=== PATIENT | female | born 1930 | race Caucasian/White ===

== ENCOUNTER 2017-12-02 17:39 | Inpatient (IN) | payer MEDICARE ==
[~2017-12-02] VITALS: Ht 160 cm; Wt 78.5 kg
--- NOTE | ~2017-12-02 | PR ---
[place], [place] PROGRESS NOTE NAME: NEERU FONSECA UNIT #: [id number] ROOM: 311 DOCTOR: JOSE LOU MD BIRTHDATE: [birth year] DOS: 12/12/2017 CHIEF COMPLAINT: "Good morning, how are you." SUMMARY OF THE VISIT: The patient was interviewed as she sat in the quiet room, eating her breakfast. Physical therapy was there working with her and they disengaged and allowed me to interview her. The patient was bright and pleasant as I approached and she smiled readily. Her only complaint was that she was cold and she requested another blanket. She reported she slept good and is feeling okay again other than being cold. She was pleasant and cooperative upon approach. Notes indicate, however, she continues to have episodic yelling out. She does seem to be tolerating the current medication regimen well and I do not see any sedation, somnolence, extrapyramidal symptoms or tardive dyskinesia. MENTAL STATUS: She is alert and oriented to self, possibly place, not to time. Mood does seem to be trending towards euthymia and affect is more appropriate. There is no walker or hypomania. There are no gross psychotic symptoms. Short-term memory continues to be problematic. Otherwise, she is intact. PLAN: I will increase her Seroquel from 75 to 100 mg at bedtime. Continue to engage in individual and llamas milieu activity, returning to the least restrictive environment when psychiatrically stable. JOSE LOU MD CM:PNTRANS [id number] JOSE LOU MD 12/12/17 1356 interface
--- NOTE | ~2017-12-02 | PR ---
[place], [place] PROGRESS NOTE NAME: NEERU FONSECA UNIT #: [id number] ROOM: 311 DOCTOR: FANY MCGARRY DO BIRTHDATE: [birth year] DOS: 12/13/2017 CHIEF COMPLAINT: "Good morning." SUMMARY OF VISIT: An 87-year-old female was interviewed while sitting in a chair in the back of the dining room waiting for breakfast. She reports she slept okay. Informed the patient working on her discharge paperwork and the patient states she would like that. Per nursing, the patient continues to have episodes of yelling out during the day and sometimes in the night. The patient's p.o. intake also remained decreased in which she did not eat the sac last night and only ate 50% of her lunch as well. The patient has not required her insulin due to the decrease in p.o. intake. MENTAL STATUS EXAMINATION: She is alert and oriented to self, but not place or time. Mood is more euthymic and affect is more appropriate. The episodic yelling appears to occur when the patient is left alone and suspect to be attention seeking. No walker or hypomania. No agitation. Short-term memory remains poor. PLAN: 1. Continue current psychiatric medication regimen. 2. We will continue to encourage the patient to engage in individual and word milieu activity, returning to the least restrictive environment when psychiatrically stable. ADDENDUM Dr. Lou 12/21 03:30 p.m.: Above note reviewed. Agree with observations, recommendations, and overall treatment plan. Fany Mcgarry DO [place], [place] PROGRESS NOTE NAME: NEERU FONSECA UNIT #: [id number] ROOM: 311 DOCTOR: FANY MCGARRY DO BIRTHDATE: [birth year] JOSE LOU MD CM:PNTRANS 0927 T: FANY MCGARRY DO 12/21/17 1549 [email or web address] [email or web address]
--- NOTE | ~2017-12-02 | WRIGHTHP ---
[place], [place] PATIENT HISTORY AND PHYSICAL EXAM NAME: NEERU FONSECA UNIT #: [id number] ROOM: 317 DOCTOR: JOSE LOU MD BIRTHDATE: [birth year] DOS: 12/04/2017 CHIEF COMPLAINT: "Yeah, I am a little cold, I can use another blanket, thank you." HISTORY OF PRESENT ILLNESS: This is an 87-year-old white female known to me from a previous psychiatric admission to [facility] as well as her stay at [facility]. Most recently, the patient had a spike in her anxiety and her yelling out necessitating a psychiatric admission to [place], [place]. During the period of time, she had a rather lengthy hospital stay that culminated with the last 7 days of her being relatively symptom free, ultimately going back to [facility]; however, within 24 hours of readmission to [facility], the patient began acting out. She was yelling out once again, verbally abusive towards staff, threatening towards staff and other residents. She even had gone as far as to leaving her room in her wheelchair and going into other residents' rooms and making threats of bodily harm to them. She also made threats to visitors that were there. This is in stewart contrast to her admission to [facility] as well as her last week while at the psychiatric hospital. She is admitted now to rule out physical issues, to attempt to restabilize on medication if necessary, to engage in individual and llamas milieu activity and then to determine the least restrictive environment to which she could be discharged to. PAST MEDICAL HISTORY: Remarkable for Alzheimer's dementia, coronary artery disease, congestive heart failure, COPD, diabetes, hypertension, hyperlipidemia, hypothyroidism, obesity, obstructive sleep apnea, uterine cancer, vitamin D deficiency. SOCIAL HISTORY: She is a former cigarette smoker. She does not use drugs or any alcohol. ALLERGIES: She lists allergies to PENICILLIN, ARICEPT, GLIMEPIRIDE, IBUPROFEN, and NAMENDA. STRENGTHS: Good verbal skills, supportive family. WEAKNESSES: Poor coping skills. MENTAL STATUS: Alert and oriented to person, place, not time. Mood seems to be fairly euthymic. Affect appropriate. Some anxiety was present, but redirectable. No walker, hypomania or psychosis is noted. She does process slowly and at times there is sparsity of thought and responses are slow. Short-term memory continues to be problematic. DIAGNOSES: Major depression, recurrent; brief psychotic disorder. PLAN: I have maintained her current psychotropics. We will engage in individual and llamas milieu activity, explore possible discharge options, discharging then when stable. [place], [place] PATIENT HISTORY AND PHYSICAL EXAM NAME: NEERU FONSECA UNIT #: [id number] ROOM: [facility] DOCTOR: JOSE LOU MD BIRTHDATE: [birth year] JOSE LOU MD CM:HISPHYS:PATIENT HISTORY AND PHYSICAL EXAMINATION [id number] JOSE LOU MD 12/04/17 1018 interface
--- NOTE | ~2017-12-02 | PR ---
[place], [place] PROGRESS NOTE NAME: NEERU FONSECA UNIT #: [id number] ROOM: 311 DOCTOR: FANY MCGARRY DO BIRTHDATE: [birth year] DOS: 12/06/2017 PSYCHIATRIC PROGRESS NOTE CHIEF COMPLAINT: "I am alright." SUMMARY OF THE VISIT: The patient was interviewed in the dining home while waiting for lunch. Per nursing staff, the patient has not slept for the last 2 nights and last night, she was screaming and exhibited manic-like behavior. When prompting patient about how she has been sleeping, she said she does not sleep at night, but she does not feel any tiredness or the need to sleep. When asked if the patient had depression or anxiety, the patient actually became very sensitive regarding that subject and very testy and she states she denies any depression or anxiety. The patient only states that she is only ever in pain whenever she moves too much. Nursing staff also stated that patient refused blood work this morning. MENTAL STATUS EXAMINATION: The patient is alert and oriented to person and place, but not to time. The patient does appear to have a mood that is somewhat depressed and anxious. There is no walker, hypomania or psychosis. Short term memory is very poor. PLAN: Seroquel 12.5 mg at bedtime. We will continue to engage patient in individual and llamas milieu activity, return to least restrictive environment when psychiatrically stable. Discharge will depend on medical and psychiatric status at that time. ADDENDUM Dr. Lou 12/21 03:30 p.m.: Above note reviewed. Agree with observations, recommendations, and overall treatment plan. Fany Mcgarry DO [place], [place] PROGRESS NOTE NAME: NEERU FONSECA UNIT #: [id number] ROOM: 311 DOCTOR: FANY MCGARRY DO BIRTHDATE: [birth year] JOSE LOU MD CM:PNTRANS 20 1017 TM FANY MCGARRY DO 12/23/17 1018 JESSICA [email or web address]
--- NOTE | ~2017-12-02 | PR ---
[place], [place] PROGRESS NOTE NAME: NEERU FONSECA UNIT #: [id number] ROOM: 317 DOCTOR: JOSE LOU MD BIRTHDATE: [birth year] DOS: 12/05/2017 CHIEF COMPLAINT: "It is all my fault, I did that." HISTORY OF PRESENT ILLNESS: The patient was interviewed as she sat next to a female peer who was very withdrawn and grossly delusional. As I was attempting to interview the other resident, the patient intervened repeatedly stating that it is all her fault that she was that way. When I did remove the patient and talked to her separately, she continued to complain of feeling very anxious and repeatedly asked me to help her. When I attempted to ask what she needed, she was not able to vocalize this. Later as I was finishing rounds, she was in the group therapy room repeatedly yelling out "help me, help me, I want to go to bed." When staff did try to intervene, she was only quiet for a short period of time and then would escalate rapidly thereafter. She is tolerating the current medication regimen well and I do not see any suggestion of sedation, somnolence, extrapyramidal symptoms or tardive dyskinesia. MENTAL STATUS: She remains alert and oriented to person, place and that she knows she is in the hospital. I am unclear if she realizes that she is in [place]. She is certainly not oriented to time. Mood does still seem to be somewhat depressed with anxious overtones. There is no walker, hypomania or gross psychosis. Memory for short term events is exceptionally poor. PLAN: I will change her Cymbalta from 60 mg at bedtime to 20 mg in the morning and 40 mg at night, being careful not to overdo medication and utilize a current dose just in a different fashion to see if benefit can incur. At this point, I may need to add an antipsychotic medication. Her anxiety level is almost to the point of delusional in its characteristics as she does not redirect and does not find any other ways to cope. We will continue to try nonpharmacologic interventions as well to see if these are at all beneficial. Ultimately, we will look to discharge her to the least restrictive environment when psychiatrically stable. JOSE LOU MD CM:YANET [id number] JOSE LOU MD 12/05/17 2339 interface
--- NOTE | ~2017-12-02 | DS ---
[place], [place] DISCHARGE SUMMARY NAME: NEERU FONSECA UNIT #: [id number] ROOM: 311 DOCTOR: JOSE LOU MD BIRTHDATE: [birth year] DOS: 12/16/2017 CHIEF COMPLAINT: "Yeah, I am a little cold, I could use another blanket, thank you." HISTORY OF PRESENT ILLNESS: This is an 87-year-old white female known to me from her previous psychiatric admission to [facility] as well as her stay at [facility]. Most recently, the patient had an increase in her anxiety and yelling out behavior, necessitating a psychiatric admission to [facility]. During that period of time, she had a rather lengthy hospital stay. They had culminated with the last 7 days of her being symptom free, ultimately going back to [facility]; however, within 24 hours of readmission to [facility], the patient began acting out. She was yelling out once again, was verbally abusive toward staff and threatening staff and other residents. She had even gone as far as to leaving her room with her wheelchair and going into other residents' rooms and making threats of bodily harm to them. She also made threats to visitors that were there. As mentioned previously, this is in stewart contrast to her behavior during the latter part of her stay at [facility]. She was admitted now to [facility] to rule out any organic factors, to stabilize on medication and determine the least restrictive environment to which she could be discharged to. PAST MEDICAL HISTORY: Remarkable for Alzheimer's dementia, coronary artery disease, congestive heart failure, COPD, diabetes, hypertension, hyperlipidemia, hypothyroidism, obesity, obstructive sleep apnea, uterine cancer and vitamin D deficiency. SOCIAL HISTORY: She is a former cigarette smoker. She does not use drugs or drink any alcohol. She lists allergies to PENICILLIN, ARICEPT, GLIMEPIRIDE, IBUPROFEN and NAMENDA. STRENGTHS: Good verbal skills and supportive family. WEAKNESSES: Poor coping skills. SUMMARY OF HOSPITAL COURSE: The patient was admitted to the hospital, where she was maintained on Exelon patch 9.5 mg a day. Her Cymbalta, which was being given at a dose of 60 mg at bedtime was split to 20 mg in the morning and 40 mg at nighttime in order to improve anxiety control and pain control. She tolerated this switch well. She was eventually started on Seroquel at bedtime 25 mg, then 50, then 100 mg in order to augment the effectiveness of the Cymbalta. This did aid sleep and reduce her daytime anxiety and mood lability. She was also maintained on BuSpar 5 mg 4 times daily as this had worked previously at [facility] to control her anxiety. Toward the latter part of her stay, Atarax 10 mg t.i.d. was added also to decrease her anxiety. It seemed as though the anxiety triggered her yelling out. There was also a behavioral component that we consistently noted on the unit that if she was not getting the attention that she wanted or the response that she wanted, she would definitely [place], [place] DISCHARGE SUMMARY NAME: NEERU FONSECA UNIT #: [id number] ROOM: 311 DOCTOR: JOSE LOU MD BIRTHDATE: [birth year] escalate and yell out repeatedly. Once her needs were met, she would stop the erratic behavior. The patient had improved sufficiently with this combination and was tolerating the medication combination well, so that she was discharged. At this point, she was discharged to [facility]. MENTAL STATUS AT DISCHARGE: Alert, oriented with time gaps. Mood does seem to be euthymic. Affect appropriate. No walker, hypomania or psychosis. Short term memory is problematic. FINAL DIAGNOSES: Major depression, recurrent with psychotic features. Anxiety disorder, not otherwise specified, and Alzheimer's dementia. DISPOSITION: The patient is being discharged to [facility]. Her prescriptions were printed and will be sent with her. She was medically and psychiatrically stable and her biopsychosocial needs will be adequately met by the facility to which she is being admitted to. JOSE LOU MD CM:DISCHARG [id number] JOSE LOU MD 12/16/17 1849 interface
--- NOTE | ~2017-12-02 | PR ---
[place], [place] PROGRESS NOTE NAME: NEERU FONSECA UNIT #: [id number] ROOM: 310 DOCTOR: KIARA MELENDEZ MD BIRTHDATE: [birth year] DOS: 12/10/2017 PSYCHIATRIC PROGRESS NOTE SUBJECTIVE: The patient seen and spoke with the staff. Per staff, the patient sundown. She has been getting p.r.n. Vistaril at 4:00-5:00 p.m., which was effective. The patient was pleasant, cooperative. She was in the day area. She was kept on screaming that "I need help." "I don't know what's wrong." When I asked her that what was bothering her, she did not answer any of my question. Reportedly, she is taking her medication and did not have any side effect from the medication also. MENTAL STATUS EXAMINATION: The patient was screaming that "I need help." She was in the [place] chair. She was alert, but not oriented to day, date, month and year. Described her mood as "okay." Affect was broad range. Thought process was disorganized. She denied auditory or visual hallucination. No delusion or paranoia noted. She denied suicidal ideation, intent or plan. She also denied homicidal ideation, intent or plan. PLAN: 1. Continue current medications and care. 2. Continue redirection. 3. Supportive care. KIARA MELENDEZ MD CM:PNTRANS [phone] KIARA MELENDEZ MD 12/11/17 1417 interface
--- NOTE | ~2017-12-02 | PR ---
[place], [place] PROGRESS NOTE NAME: NEERU FONSECA UNIT #: [id number] ROOM: 311 DOCTOR: FANY MCGARRY DO BIRTHDATE: [birth year] DOS: 12/14/2017 CHIEF COMPLAINT: "Hey, hey need someone on phone." SUMMARY OF VISIT: An 87-year-old female was interviewed while sitting in the dining martino on the phone with her daughter. When we were interviewing another individual, she kept yelling out that she needed someone and being very loud and disruptive. Nursing staff came in and removed the phone from the room. The patient was still fixated on the phone when we attempted to interview the patient. The patient reported not very well, want to talk to phone. She then stated "I can't talk to phone anymore." The patient kept saying "take the damn phone off me." States "talk my daughter," whenever we try to get information out of the patient. Asked if the daughter upsets her and the patient replies, "no my daughter does not upset me, going to tell her to hang up and talk when home." After leaving, the patient did talk to other patients in the dining martino. The patient continued to be yelling and disruptive. Nursing staff had to put the patient in the hallway, where she continued to yell for help, "need someone's help hello, I am sorry," repeatedly. Per nursing staff, the patient slept over 8 hours overnight. The patient missed her Vistaril last night, but did get the Geodon medication. Nursing staff also reports that patient is usually quiet and cooperative until she starts talking on the phone with her daughter. MENTAL STATUS EXAMINATION: She is alert and oriented to self, but not place or time. Mood is euthymic at times; however, after conversations on phone with the family members, the patient becomes agitated, disruptive and very anxious. It appears that patient's yelling and agitation is behavioral not due to psychosis or delusions. The patient's verbal responses are short and disoriented thoughts. There is no walker or hypomania. Short term memory remains poor. PLAN: 1. Continue current psychiatric medication regimen. 2. We will continue to encourage the patient to engage in individual and llamas milieu activity, return to the least restrictive environment when psychiatrically stable. Plan for discharge this Tuesday once a placement is found. ADDENDUM Dr. Lou 12/21 03:30 p.m.: Above note reviewed. Agree with observations, recommendations, and overall treatment plan. Fany Mcgarry DO [place], [place] PROGRESS NOTE NAME: NEERU FONSECA UNIT #: [id number] ROOM: [facility] DOCTOR: FANY MCGARRY DO BIRTHDATE: [birth year] JOSE LOU MD CM:PNTRANS [id number] 1020 TM FANY MCGARRY DO 12/23/17 1020 JESSICA [email or web address]
--- NOTE | ~2017-12-02 | PR ---
[place], [place] PROGRESS NOTE NAME: NEERU FONSECA UNIT #: [id number] ROOM: 310 DOCTOR: KIARA MELENDEZ MD BIRTHDATE: [birth year] DOS: 12/11/2017 PSYCHIATRIC PROGRESS NOTE SUBJECTIVE: The patient seen and spoke with the staff. Per staff, the patient continues to yell all the time, hard to redirect. She is compliant with her medication. The patient was in the [place] chair. She was in the dining area, kept on saying that "I need help, I need help." When I went to see her and asked her how she is doing, she said "not so well." When I asked her why she is not doing well, she was not able to come up with any answer, but kept on saying "can I get help." MENTAL STATUS EXAMINATION: Irritable and angry, described her mood as "not so well." Affect labile. She denied auditory or visual hallucination. No delusion or paranoia noted. She denied suicidal ideation, intent or plan. She also denied homicidal ideation, intent or plan. Insight and judgment impaired. PLAN: 1. I will add Seroquel 25 mg in the morning. We will give her the first dose now. 2. Continue redirection. 3. Supportive care. 4. Medication management of the patient under the regular team. KIARA MELENDEZ MD CM:PNTRANS 01 KIARA MELENDEZ MD 12/12/17 0010 interface
--- NOTE | ~2017-12-02 | PR ---
[place], [place] PROGRESS NOTE NAME: NEERU FONSECA UNIT #: [id number] ROOM: 311 DOCTOR: FANY MCGARRY DO BIRTHDATE: [birth year] DOS: 12/15/2017 CHIEF COMPLAINT: "Morning." SUMMARY OF VISIT: An 87-year-old female interviewed while sitting in the dining martino. HISTORY OF PRESENT ILLNESS: The patient reports that she is doing good and that she is just here doing nothing. I informed the patient that we will be working on getting her out of the hospital and patient responded, "I would like that". She is pleasant and calm during this interview. Per nursing staff, the patient slept over 8 hours last night and this morning required a lot of coaxing to swallow her medications with applesauce. The patient also was anxious and yelling out, "I am sorry, I am scared repeatedly;" however, the patient was able to calm down when given Vistaril. MENTAL STATUS EXAMINATION: She is alert and oriented to self, but not place or time. Mood is more euthymic. Affect is more appropriate. Her responses to questions are continually short and have disoriented thought processes. There is no walker or hypomania. There are no current visual or auditory hallucinations. Short term memory is poor. PLAN: 1. Atarax 10 mg t.i.d. 2. We will engage this individual in llamas in milieu activity with plan to return to the least restrictive environment when psychiatrically stable. 3. Plan for discharge is Tuesday to [facility] if patient is medically and psychiatrically stable at that time. ADDENDUM Dr. Lou 12/21 03:30 p.m.: Above note reviewed. Agree with observations, recommendations, and overall treatment plan. Fany Mcgarry DO [place], [place] PROGRESS NOTE NAME: NEERU FONSECA UNIT #: [id number] ROOM: 311 DOCTOR: FANY MCGARRY DO BIRTHDATE: [birth year] JOSE LOU MD CM:PNTRANS 1106 1021 TM FANY MCGARRY DO 12/23/17 1023 JESSICA [email or web address]
--- NOTE | ~2017-12-02 | PR ---
[place], [place] PROGRESS NOTE NAME: NEERU FONSECA UNIT #: [id number] ROOM: 311 DOCTOR: ZEFERINO FANY BIRTHDATE: [birth year] DOS: 12/07/2017 PSYCHIATRIC PROGRESS NOTE CHIEF COMPLAINT: "Scared me awake." SUMMARY OF VISIT: This is an 87-year-old female being interviewed while sitting in the dining martino and sleeping. The patient is able to be aroused with verbal commands. The patient states that she ate breakfast and has no current complaints. Per nursing staff, the patient did improve in her sleep overnight; however, she was interrupted multiple times throughout the night because her roommate kept using the call button frequently. MENTAL STATUS EXAMINATION: She is alert and oriented to person and place, not time. Mood is still somewhat depressed, but trending toward to being more euthymic. There is no walker, hypomania, agitation. Short-term memory remains poor. PLAN: 1. We will increase Seroquel 25 mg at bedtime. 2. We will continue to engage the patient individual and llamas milieu activity, returning to least restrictive environment when psychiatrically stable. Discharge will depend on medical and psychiatric status at that time. ADDENDUM Dr. Lou 12/21 03:30 p.m.: Above note reviewed. Agree with observations, recommendations, and overall treatment plan. Fany Peace DO [place], [place] PROGRESS NOTE NAME: NEERU FONSECA UNIT #: [id number] ROOM: 311 DOCTOR: FANY PEACE DO BIRTHDATE: [birth year] JOSE LOU MD CM:PNTRANS 1204 T: FANY PEACE DO 12/21/17 1548 GINGER [email or web address]
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
--- NOTE | ~2017-12-02 | PR ---
[place], [place] PROGRESS NOTE NAME: NEERU FONSECA UNIT #: [id number] ROOM: 311 DOCTOR: FANY MCGARRY DO BIRTHDATE: [birth year] DOS: 12/08/2017 PSYCHIATRIC PROGRESS NOTE CHIEF COMPLAINT: An 87-year-old female who was interviewed while sitting in the dining martino. The patient states she ate breakfast and slept well last night. We informed the patient that we are considering placing her in [facility] upon discharge and the patient responded. I guess I do not really have a choice. The patient currently has no complaints. Per nursing staff, the patient was anxious and labile. Yesterday, she did have an episode of yelling out help overnight; however, was able to sleep 8 hours. MENTAL STATUS EXAMINATION: She is alert and oriented to person and place, not time. Mood is still somewhat depressed, but trending, becoming more euthymic. There is no walker, hypomania or agitation. Short term memory remains poor. PLAN: Continue current medication regimen. We will continue to engage the patient in individual and llamas milieu activity, return to the least restrictive environment when psychiatrically stable and discharge will depend on the medical and psychiatric status at that time. ADDENDUM Dr. Lou 12/21 03:30 p.m.: Above note reviewed. Agree with observations, recommendations, and overall treatment plan. Fany Mcgarry DO JOSE LOU MD CM:PNTRANS [id number] T: FANY MCGARRY DO 12/21/17 1548 [email or web address]
[2017-12-02] MEDS ORDERED: BUSPAR5 MG PO (18:00)
[2017-12-02] MEDS ORDERED: ATIVAN1 MG IM (18:01)
[2017-12-02] MEDS ORDERED: DUONEB 3 MG/3 ML3 M1 INH (18:02)
[2017-12-02] MEDS ORDERED: BUMETANIDE1 MG PO (18:03)
[2017-12-02] MEDS ORDERED: CYMBALTA60 MG PO (18:03)
[2017-12-02] MEDS ORDERED: EXELON1 EAC1 T (18:04)
[2017-12-02] MEDS ORDERED: METHYLFOLATE PO (18:04)
[2017-12-02] MEDS ORDERED: LANTUS SOL100 UNIT/1 SC (18:05)
[2017-12-02] MEDS ORDERED: LISINOPRIL40 MG PO (18:08)
[2017-12-02] MEDS ORDERED: ASPIRIN81 M1 PO (18:09)
[2017-12-02] MEDS ORDERED: AMLODIPINE BESYL5 MG PO (18:09)
[2017-12-02] MEDS ORDERED: ATORVASTATIN CA10 M1 PO (18:10)
[2017-12-02] MEDS ORDERED: MIRALAX17 GM PO (18:10)
[2017-12-02] MEDS ORDERED: SYNTHROID,LEV112 MCG PO (18:11)
[2017-12-02] MEDS ORDERED: VITAMIN D5000 UNIT PO (18:12)
[2017-12-02] MEDS ORDERED: METOPROLOL TART50 M1 PO (18:16)
[2017-12-02] MEDS ORDERED: GLUCOPHAGE500 M1 PO (18:16)
[2017-12-02] MEDS ORDERED: [UNRECOGNIZED DRUG - REMARK] PO (18:18)
[2017-12-02] MEDS ORDERED: HUMALOG KW200 UNIT/1 SQ (18:20)
[2017-12-02] MEDS ORDERED: NITROSTAT0.4 MG SL (18:21)
[2017-12-02] MEDS ORDERED: ZOFRAN4 MG PO (18:22)
[2017-12-03 12:30] VITALS: BP 160/66
[2017-12-03 13:35] VITALS: BP 122/82
[2017-12-03 15:27] LABS: BASO % 0.6 % (0.0-1.0); EOS # 0.5 10*3/uL (0.0-0.4); EOS % 7.9 % (1.0-4.0); HEMATOCRIT 34.7 % (37.0-47.0); HEMOGLOBIN 10.8 g/dl (12.0-16.0); LYMPH # 1.1 10*3/uL (1.3-4.4); LYMPH % 15.7 % (27.0-41.0); MEAN CELL VOLUME 79.6 fl (81.0-99.0); MEAN CORPUSCULAR HGB 24.8 pg (27.0-31.0); MEAN CORPUSCULAR HGB CONC 31.1 g/dl (33.0-37.0); MEAN PLATELET VOLUME 9.4 fl (9.6-12.3); MONO # 0.6 10*3/uL (0.1-1.0); MONO % 9.4 % (3.0-9.0); NEUT # 4.4 10*3/uL (2.3-7.9); NEUT % 65.8 % (47.0-73.0); PLATELET COUNT AUTOMATED 234 10*3/uL (130-400); RED BLOOD COUNT 4.36 10*6/uL (4.10-5.10); WHITE BLOOD COUNT 6.7 10*3/uL (4.8-10.8)
[2017-12-03 15:45] LABS: ALBUMIN 2.9 gm/dl (3.1-4.5); ALKALINE PHOSPHATASE 74 U/L (45-117); BUN 10 mg/dl (7-24); CHLORIDE 102 mmol/L (98-107); CREATININE 0.75 mg/dL (0.55-1.02); LIPASE 65 U/L (73-393); POTASSIUM 3.7 mmol/L (3.5-5.1); SGOT/AST 5 IU/L (3-35); SGPT/ALT 14 U/L (12-78); SODIUM 139 mmol/L (136-145); TOTAL PROTEIN 6.6 gm/dL (6.4-8.2)
[2017-12-03 15:46] LABS: ACT PARTIAL THROMBO TIME 27.1 SECONDS (20.8-31.5); TROPONIN I < 0.015 ng/ml (<0.045)
[2017-12-03 15:51] LABS: BILIRUBIN NEGATIVE (NEGATIVE); BLOOD NEGATIVE (NEGATIVE); CLARITY CLEAR (CLEAR); COLOR YELLOW (YELLOW); GLUCOSE NEGATIVE (NEGATIVE); KETONE NEGATIVE (NEGATIVE); LEUKO ESTERASE NEGATIVE (NEGATIVE); NITRITE NEGATIVE (NEGATIVE); UROBILINOGEN 0.2 E.U./dl (0.2-1.0)
[2017-12-03 15:57] LABS: BACTERIA 1+; RBC 0-2 rbc/hpf (0-2); WBC 0-2 wbc/hpf (0-5)
[2017-12-03 20:57] VITALS: BP 154/66
[2017-12-04 06:03] LABS: BASO # 0.1 10*3/uL (0.0-0.1); BASO % 0.8 % (0.0-1.0); EOS # 0.5 10*3/uL (0.0-0.4); EOS % 8.2 % (1.0-4.0); HEMATOCRIT 34.3 % (37.0-47.0); HEMOGLOBIN 10.6 g/dl (12.0-16.0); LYMPH # 1.4 10*3/uL (1.3-4.4); LYMPH % 20.6 % (27.0-41.0); MEAN CELL VOLUME 79.8 fl (81.0-99.0); MEAN CORPUSCULAR HGB 24.7 pg (27.0-31.0); MEAN CORPUSCULAR HGB CONC 30.9 g/dl (33.0-37.0); MEAN PLATELET VOLUME 9.5 fl (9.6-12.3); MONO # 0.7 10*3/uL (0.1-1.0); MONO % 10.1 % (3.0-9.0); NEUT % 59.7 % (47.0-73.0); PLATELET COUNT AUTOMATED 225 10*3/uL (130-400); RED CELL DISTRI WIDTH 16.9 % (0-14.5); WHITE BLOOD COUNT 6.6 10*3/uL (4.8-10.8)
[2017-12-04 06:30] LABS: CHLORIDE 105 mmol/L (98-107); POTASSIUM 3.5 mmol/L (3.5-5.1); SODIUM 140 mmol/L (136-145)
[2017-12-04 06:46] LABS: ALBUMIN 2.8 gm/dl (3.1-4.5); ALKALINE PHOSPHATASE 70 U/L (45-117); BUN 10 mg/dl (7-24); CHOLESTEROL 98 mg/dL (<200); CREATININE 0.55 mg/dL (0.55-1.02); HDL CHOLESTEROL 41 mg/dl (40-60); LDL CHOLESTEROL 39 mg/dL (9-159); SGOT/AST 8 IU/L (3-35); SGPT/ALT 11 U/L (12-78); TOTAL PROTEIN 6.2 gm/dL (6.4-8.2); TRIGLYCERIDES 92 mg/dl (<150); VLDL CHOLESTEROL 18 mg/dL (6-40)
[2017-12-04 07:26] LABS: VITAMIN D, 25-HYDROXY 56.6 ng/mL (30-100)
[2017-12-04 08:05] VITALS: BP 145/62
[2017-12-04 20:13] VITALS: BP 145/61
[2017-12-05 07:49] VITALS: BP 138/67
[2017-12-05 19:58] VITALS: BP 130/85
[2017-12-06 08:00] VITALS: BP 134/71
[2017-12-06 20:00] VITALS: BP 142/72
[2017-12-07 08:33] VITALS: BP 156/62
[2017-12-07 20:07] VITALS: BP 142/82
[2017-12-08 07:46] VITALS: BP 134/80
[2017-12-08 15:03] LABS: BILIRUBIN NEGATIVE (NEGATIVE); BLOOD NEGATIVE (NEGATIVE); CLARITY CLEAR (CLEAR); COLOR YELLOW (YELLOW); GLUCOSE NEGATIVE (NEGATIVE); KETONE NEGATIVE (NEGATIVE); LEUKO ESTERASE NEGATIVE (NEGATIVE); NITRITE NEGATIVE (NEGATIVE); SPECIFIC GRAVITY 1.015 (1.005-1.030); UROBILINOGEN 0.2 E.U./dl (0.2-1.0)
[2017-12-08 15:26] LABS: BACTERIA 1+
[2017-12-08 19:38] VITALS: BP 126/52
[2017-12-09 07:53] VITALS: BP 134/61
[2017-12-09 19:51] VITALS: BP 139/60
[2017-12-10 07:31] VITALS: BP 140/77
[2017-12-10 20:00] VITALS: BP 130/68
[2017-12-11 08:13] VITALS: BP 147/51
[2017-12-11 20:04] VITALS: BP 141/60
[2017-12-12 07:50] VITALS: BP 124/69
[2017-12-12 19:46] VITALS: BP 152/61
[2017-12-13 07:58] VITALS: BP 132/69
[2017-12-13 20:10] VITALS: BP 130/66
[2017-12-14 08:02] VITALS: BP 132/68
[2017-12-14 20:24] VITALS: BP 146/62
[2017-12-15 08:10] VITALS: BP 138/67
[2017-12-15 20:17] VITALS: BP 136/64
[2017-12-16 08:13] VITALS: BP 128/60
[2017-12-16] MEDS ORDERED: ATARAX,VISTARIL10 MG PO (11:21)
[2017-12-16] MEDS ORDERED: RIVASTIGMINE1 EAC1 T (11:21)
[2017-12-16] MEDS ORDERED: DULOXETINE HCL20 MG PO ×2 (11:21)
[2017-12-16] MEDS ORDERED: HYDROXYZINE PAM25 M1 PO (11:21)
[2017-12-16] MEDS ORDERED: QUETIAPINE FUM100 M3 PO (11:21)
[2017-12-16] MEDS ORDERED: BUSPAR5 MG PO (11:21)
== END 2017-12-16 14:10 | DRG 885 ==
LOC: 3N 17:39
PROVIDERS: Emergency Medicine; Psychiatry & Neurology Psychiatry
DX: F33.3 Major depressive disorder, recurrent, severe with psychotic symptoms (principal); E44.0 Moderate protein-calorie malnutrition; G30.9 Alzheimer's disease, unspecified; I50.32 Chronic diastolic (congestive) heart failure; I11.0 Hypertensive heart disease with heart failure; E66.01 Morbid (severe) obesity due to excess calories; F02.81 Dementia in other diseases classified elsewhere, unspecified severity, with behavioral disturbance; F23 Brief psychotic disorder; E11.9 Type 2 diabetes mellitus without complications; F41.9 Anxiety disorder, unspecified; I25.10 Atherosclerotic heart disease of native coronary artery without angina pectoris; J44.9 Chronic obstructive pulmonary disease, unspecified; E78.5 Hyperlipidemia, unspecified; E55.9 Vitamin D deficiency, unspecified; E03.9 Hypothyroidism, unspecified; G47.33 Obstructive sleep apnea (adult) (pediatric); Z85.42 Personal history of malignant neoplasm of other parts of uterus; Z87.891 Personal history of nicotine dependence; Z88.0 Allergy status to penicillin; Z88.8 Allergy status to other drugs, medicaments and biological substances; Z79.4 Long term (current) use of insulin; Z95.5 Presence of coronary angioplasty implant and graft; Z79.899 Other long term (current) drug therapy; Z79.82 Long term (current) use of aspirin; Z68.30 Body mass index [BMI] 30.0-30.9, adult